=== PATIENT | female | born 1935 | race Caucasian/White ===

== ENCOUNTER → 2016-12-23 | Outpatient (CLI) | payer OTHER | LOC: MMPC 09:00 | DX: N39.0 Urinary tract infection, site not specified (principal); L90.0 Lichen sclerosus et atrophicus; Z85.850 Personal history of malignant neoplasm of thyroid; E66.9 Obesity, unspecified; R73.9 Hyperglycemia, unspecified; H35.30 Unspecified macular degeneration; E03.9 Hypothyroidism, unspecified; K21.9 Gastro-esophageal reflux disease without esophagitis; I10 Essential (primary) hypertension; M10.9 Gout, unspecified; I47.1 Supraventricular tachycardia; Z85.3 Personal history of malignant neoplasm of breast; Z85.118 Personal history of other malignant neoplasm of bronchus and lung | CPT/HCPCS: 99213; G0463 ==

== ENCOUNTER → 2017-01-05 | Outpatient (CLI) | payer OTHER ==
[2017-01-05 16:39] LABS: BILIRUBIN,URINE NEGATIVE (NEG); CLARITY,URINE CLEAR (CLEAR); GLUCOSE, URINE (UA) NEGATIVE (NEG); LEUKOCYTE ESTERASE ,URINE SMALL (NEG); NITRATE,URINE NEGATIVE (NEG); OCCULT BLOOD,URINE NEGATIVE (NEG); PH,URINE 6.5 (5.0-8.5); PROTEIN,URINE NEGATIVE (NEG); UROBILINOGEN,URINE 0.2 EU/dL (0.2)
[2017-01-05 16:51] LABS: URINE SAMPLE TYPE CLEAN CATCH URINE
[2017-01-05 16:52] LABS: SQUAMOUS EPITHELIAL CELL,UR RARE
== END ==
LOC: MOB LAB 15:23
DX: N39.0 Urinary tract infection, site not specified (principal); R82.99 Other abnormal findings in urine
CPT/HCPCS: 81001; 87077; 87088; 87186

== ENCOUNTER → 2017-01-13 | Outpatient (CLI) | payer OTHER ==
[2017-01-13 17:08] LABS: FREE T3 3.14 PG/ML (2.77-5.27); FREE T4 (FREE THYROXINE) 1.74 ng/dL (0.93-1.71)
== END ==
LOC: LAB 15:53
PROVIDERS: ATTEND Radiology Radiation Oncology
DX: E89.0 Postprocedural hypothyroidism (principal); Z85.3 Personal history of malignant neoplasm of breast
CPT/HCPCS: 36415; 84439; 84443; 84481

== ENCOUNTER → 2017-02-09 | Outpatient (CLI) | payer OTHER | LOC: MMPC 11:11 | DX: M54.2 Cervicalgia (principal); L90.0 Lichen sclerosus et atrophicus; Z85.850 Personal history of malignant neoplasm of thyroid; N39.0 Urinary tract infection, site not specified; E03.9 Hypothyroidism, unspecified; K21.9 Gastro-esophageal reflux disease without esophagitis; I10 Essential (primary) hypertension; M10.9 Gout, unspecified; Z85.3 Personal history of malignant neoplasm of breast; Z85.118 Personal history of other malignant neoplasm of bronchus and lung | CPT/HCPCS: 99213; G0463 ==

== ENCOUNTER → 2017-03-02 | Outpatient (CLI) | payer OTHER | LOC: MMPC 11:11 | DX: M54.2 Cervicalgia (principal); I47.1 Supraventricular tachycardia; E55.9 Vitamin D deficiency, unspecified; E66.9 Obesity, unspecified; I10 Essential (primary) hypertension; E03.9 Hypothyroidism, unspecified; L90.0 Lichen sclerosus et atrophicus; N39.0 Urinary tract infection, site not specified; K21.9 Gastro-esophageal reflux disease without esophagitis; M10.9 Gout, unspecified; Z85.3 Personal history of malignant neoplasm of breast; Z86.011 Personal history of benign neoplasm of the brain; Z85.850 Personal history of malignant neoplasm of thyroid; Z85.118 Personal history of other malignant neoplasm of bronchus and lung | CPT/HCPCS: 99213; G0463 ==

== ENCOUNTER → 2017-03-10 | Outpatient (CLI) | payer OTHER ==
--- NOTE | 2017-03-10 12:40 | DI ---
MRI ORB/FACE AND/OR NCK W/O CN,03/10/2017 9:45 AM: Clinical History: Left-sided neck pain. Previous Exam: None at this facility. Findings: Multiplanar MR images are obtained through the neck without contrast. Bony alignment is anatomic and vertebral body height is preserved. Degenerative changes are seen of t he posterior articulating facets. The parotid glands are unremarkable. The temporomandibular joint is normal bilaterally. The submandibular glands are unremarkable. The parapharyngeal fat is normal and symmetric. The pharyngeal mucosal space is unremarkable. The major vascular flow voids are unremarkable. The cerebellopontine angles are normal. Visualized portions of the base of the skull demonstrate some mild diffuse age-related volume loss. Skeletal structures are unremarkable. The carotid arteries and vertebral arteries are grossly normal. There is no significant cervical lymphadenopathy. There is facet hypertrophy of the cervical spine which is worse on the left than the right causing mo derate left neural foraminal narrowing at C3/4, C4/5 and C5/6. These images are not well evaluated du e to the protocol which was used in this exam. The posterior fossa is unremarkable. Visualized portions of the thoracic spine are unremarkable. Impression: Degenerative changes of the cervical spine worst at the C3/4, C4/5 and C5/6 levels on the left. No soft tissue abnormalities.
== END ==
LOC: MRI 09:40
DX: M54.2 Cervicalgia (principal); M50.31 Other cervical disc degeneration, high cervical region; M50.321 Other cervical disc degeneration at C4-C5 level; M50.322 Other cervical disc degeneration at C5-C6 level
CPT/HCPCS: 70540

== ENCOUNTER → 2017-03-24 | Outpatient (CLI) | payer OTHER ==
--- NOTE | 2017-03-24 10:11 | DI ---
MRI BRAIN SCAN WITHOUT CONTRAST, 03/24/2017 8:54 AM: Clinical History: History of meningioma of the brain. Previous Exam: CT head scan from 03/24/2006; MRI brain scans from 08/28/2010 and 12/13/2014. The patien t also had a noncontrast MRI scan of the orbits/face/neck on 03/10/2017. Sequences: Sagittal T1; Axial PRISCILLA T2 and FLAIR. Axial diffusion weighted images with ADC mapping were also performed. The 4th, 3rd, and lateral ventricles are of normal size, shape, position, and contour for this patien t's age. There are no focal areas of abnormally increased or decreased signal intensity. There is foc al atrophic change along the posterior and medial aspect of the right cerebellar hemisphere where robin arently the meningioma was previously located. A suboccipital craniectomy is present in this location and the defect is filled with a metallic mesh. The appearance of the cerebellum and cerebrum are unc hanged from the previous studies. There are a few scattered 2-3 mm hyperintensities in the white carlos er of the left posterior parietal region and in both frontal lobes that have not changed. There is mi ld to moderate cerebellar and moderate cerebral atrophy. Diffusion weighted imaging with ADC mapping is normal. There are no extracerebral mantels or shift of the midline structures. The paranasal sinus es are normal. Readin. Status post right suboccipital craniectomy. There is focal atrophy of the right cerebellar hemisp here posteriorly and medially and this presumably represents the location of the meningioma that has been resected. There is no evidence of recurrence of tumor. 2. There are a few scattered small punctate hyperintensities in both frontal lobes and the left post erior parietal lobe region that have not changed. The exact etiology and significance of these hyperi ntensities is uncertain. 3. Mild to moderate cerebellar and moderate cerebral atrophy. 4. Diffusion weighted imaging with ADC mapping is normal.
== END ==
LOC: MRI 03-11 09:41
DX: Z86.011 Personal history of benign neoplasm of the brain (principal); G31.89 Other specified degenerative diseases of nervous system
CPT/HCPCS: 70551

== ENCOUNTER → 2017-04-06 | Outpatient (CLI) | payer OTHER | LOC: MMPC 11:11 | PROVIDERS: ATTEND Physician Assistant | DX: J32.9 Chronic sinusitis, unspecified (principal) | CPT/HCPCS: 99213; G0463 ==

== ENCOUNTER → 2017-04-20 | Outpatient (CLI) | payer OTHER | LOC: MMPC 11:11 | DX: M54.2 Cervicalgia (principal); L90.0 Lichen sclerosus et atrophicus; E55.9 Vitamin D deficiency, unspecified; E66.9 Obesity, unspecified; N39.0 Urinary tract infection, site not specified; E03.9 Hypothyroidism, unspecified; K21.9 Gastro-esophageal reflux disease without esophagitis; I10 Essential (primary) hypertension; M10.9 Gout, unspecified; I47.1 Supraventricular tachycardia; Z85.3 Personal history of malignant neoplasm of breast; Z85.850 Personal history of malignant neoplasm of thyroid; Z85.118 Personal history of other malignant neoplasm of bronchus and lung | CPT/HCPCS: 99213; G0463 ==

== ENCOUNTER 2017-05-22 22:25 | Emergency (ER) | payer OTHER ==
[2017-05-22 22:44] LABS: BASOPHILS # (AUTO) 0.06 10*3/UL; BASOPHILS % (AUTO) 1.1 % (0-1); EOSINOPHILS # (AUTO) 0.18 10*3/UL; EOSINOPHILS % (AUTO) 3.2 % (0-8); HEMATOCRIT 39.4 % (37.0-47.0); HEMOGLOBIN 12.9 g/dL (12.0-16.0); LYMPHOCYTES # (AUTO) 1.56 10*3/uL; MEAN CORPUSCULAR HEMOGLOBIN 32.9 PG (27-31); MEAN CORPUSCULAR HGB CONC 32.7 g/dL (33-37); MEAN CORPUSCULAR VOLUME 100.5 FL (81-99); MEAN PLATELET VOLUME 10.2 FL (7.4-12.2); MONOCYTES # (AUTO) 0.54 10*3/UL (0.3-0.8); MONOCYTES % (AUTO) 9.7 % (5-15); NEUTROPHILS # (AUTO) 3.23 10*3/UL; NEUTROPHILS % (AUTO) 58 % (50-80); PLATELET MORPHOLOGY COMMENT NORMAL MORPHOLOGY (NORM); RBC MORPHOLOGY COMMENT NORMAL MORPHOLOGY (NORM); RED BLOOD COUNT 3.92 10^6/uL (4.20-5.40); WBC MORPHOLOGY COMMENT NORMAL MORPHOLOGY (NORM)
--- NOTE | 2017-05-22 22:46 | PDOC ---
Gen Adult / Medical Screen HPI - General Chief Complaint: General Medical Stated Complaint: LEFT JAW PAIN, STIFF NECK Date Seen by Provider: 05/22/17 Time Seen by Provider: 22:41 Source: POSITIVE: Patient, Spouse Exam Limitations: POSITIVE: No limitations Nurse's Notes Reviewed & Considered: Yes - Indicators Temperature Between 95 and 101 Degrees: Yes Respirations Between 12 and 20: Yes Blood Pressure Between 100-165 (sys) and 60-100 (mccarty): Yes Pulse Range Between 60-105 (100 for age > 60 years): Yes Severe Pain (Greater than 5/10 Reported): No Chest or Abdominal Pain: No Inability to Walk: No Pt Reports Active High Risk Cond. (TB/Hepatitis/HIV/Chemo): No Abnormal Mental Status: No - History of Present Illness Initial Comments: This is an 82-year-old female who comes in today complaining of left jaw pain with swelling. Patient has had many months of left jaw pain with intermittent swelling. She's had multiple workup by her primary care physician and has been unable to find an answer to her problem, although intermittent sialoadenitis seems to be responsible. She denies headache, sore throat, no trouble swallowing, no chest pain, no shortness of breath, no nausea vomiting or diarrhea, no hematuria dysuria, no rashes, no fever chills or sweats. Body Location Affected: REPORTS: Face (Left jaw), Neck Timing: REPORTS: Intermittent Duration: Unknown Similar Symptoms Previously: Yes Recent Care Received: REPORTS: Denies Any Prior Injuries Related to Current Complaint?: No - Patient Home Medications Home Medications: Home Medications Cholecalciferol (Vitamin D3) [Vitamin D3] 1 tab PO QD #30 tab 03/19/15 Gabapentin [Neurontin] 300 mg PO TID #15 cap 01/16/16 Nitrofurantoin Macrocrystal [Macrodantin] 1 cap PO QD #30 cap 06/29/16 Tamsulosin HCl [Flomax] 1 cap PO QD #30 cap 08/06/16 Clobetasol Propionate/Emoll [Clobetasol Emollient 0.05% Crm] 1 applic TOPICAL BID PRN #2 tube 09/23/16 Levothyroxine Sodium [Synthroid] 1 tab PO QD #30 tab NS 10/19/16 Allopurinol 1 tab PO QD #90 tab 11/24/16 Sulfamethoxazole/Trimethoprim [Bactrim Ds Tablet] 1 tab PO BID #14 tab 01/08/17 Tramadol HCl 1 tab PO QD PRN #30 tab 01/25/17 Triamterene/Hydrochlorothiazid [Triamterene-Hctz 37.5-25 Mg Cp] 1 cap PO QD #90 cap 01/26/17 Omeprazole 1 cap PO QD #90 cap 03/09/17 Metoprolol Tartrate 1 tab PO BID #180 tab 04/05/17 Albuterol Sulfate [Proair Hfa] 1 - 2 puff INH Q4-6H #1 inhaler 04/06/17 - Patient Allergies Allergies/Adverse Reactions: Allergies Allergy/AdvReac Type Severity Reaction Status Date / Time TANNER Inhibitors Allergy Severe Anaphylaxis Verified 05/22/17 22:51 [Tanner Inhibitors] cephalexin monohydrate Allergy Severe NOT Verified 05/22/17 22:51 [From Keflex] APPLICABLE ciprofloxacin [Ciprofloxacin] Allergy Severe NOT Verified 05/22/17 22:51 APPLICABLE indomethacin Allergy Severe Anaphylaxis Verified 05/22/17 22:51 levofloxacin [From Levaquin] Allergy Severe TENDON Verified 05/22/17 22:51 DAMAGE lisinopril Allergy Severe Anaphylaxis Verified 05/22/17 22:51 Penicillins Allergy Severe RASH Verified 05/22/17 22:51 morphine AdvReac Severe VOMITING Verified 05/22/17 22:51 Past Medical History - heen HEENT History: Denies History Cardiovascular History: Hypertension Respiratory History: Home Oxygen Use, Other (please comment) Additional Respiratory History: LOBECTOMY FROM CANCER-- R MIDDLE AND R LOWERO2 USE AT NIGHT Gastrointestinal History: Denies History Additional Gastrointestinal History: COLON RESECTION FOR DIVERTICULITIS Genitourinary History: Recurrent UTI, Other (please comment) Additional Genitourinary History: BLADDER SUSPENSION WITH MESH Endocrine History: Hypothyroidism, Other (please comment) Additional Endocrine History: THYROID CA WITH THYROIDECTOMY Musculoskeletal History: Gout, Other (please comment) Prosthesis or Implant: No Additional Musculoskeletal History: BILAT TOTAL KNEE REPLACEMENT Neurological History: Denies History Additional Neurological History: 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 Blood Disorders: Denies History Psychiatric History: Denies History History of Sexually Transmitted Diseases: No Cancer History: Lung, Breast History of MDRO: Yes History of Other Communicable Diseases: No Alcohol Use: None Substance Use Type: None Previous Surgical History: Yes Type / Date of Surgery: MULTIPLE Anesthesia Reactions: No Malignant Hyperthermia: No Significant Family History: No pertinent family hx ROS - Limitations ROS Limitations: No Limitations Constitution: REPORTS: Denies Symptoms Cardiovascular: REPORTS: Denies Cardiac Symptoms Respiratory: REPORTS: Denies Resp Symptoms Neurological: REPORTS: Denies Neuro Symptoms Gastrointestinal: REPORTS: Denies GI Symptoms Endocrine: REPORTS: Denies Symptoms Musculoskeletal: REPORTS: Neck Pain, Other (Jaw pain with swelling of the left jaw.) Genitourinary: REPORTS: Denies Symptoms Eyes: REPORTS: Denies Symptoms ENT: REPORTS: Denies Symptoms Skin: REPORTS: Denies Skin Symptoms Lympathic: REPORTS: Swollen Glands (Complaining of glans swollen left jaw and neck.) Immunologic: POSITIVE: Denies Symptoms Psychiatric: POSITIVE: Denies Psych Symptoms Gen Adult/Medical Screen Exam - General Appearance General Appearance: POSITIVE: Alert, Cooperative, No Acute Distress, No Evidence of Trauma - HEENT HEENT: POSITIVE: Head Inspection Nml, Eyes Inspection Nml, Ears Inspection Nml, Nose Inspection Nml, Oral/Dental Inspect. Nml, Pharynx Inspect. Nml, PERRL, EOMI , Other (Swollen and tender left parotid gland and sublingual gland.) - Pupils Pupil Size: 4 mm: Bilateral - Neck Neck: POSITIVE: Lymphadenopathy (Swollen lymph glands of the as well as swelling over the left jaw at the level of the parotid gland and the sublingual salivary gland.) - Respiratory Respiratory: POSITIVE: No Respiratory Distress, Breath Sounds Normal, Chest Non- Tender - Cardiovascular Cardiovascular: POSITIVE: Regular Rate & Rhythm, No Murmur, No Gallop, PMI Normal - Abdomen Abdomen: Soft: (All Quadrants), Normal Bowel Sounds: (All Quadrants), Denies Tenderness: (All Quadrants), No Splenomegaly: (All Quadrants), No Hepatomegaly: (All Quadrants), No Guarding: (All Quadrants), No Rebound: (All Quadrants), No Palpable Pulse: (All Quadrants), No Palpabale Mass: (All Quadrants), No Distention: (All Quadrants), No Rigidity: (All Quadrants) - Back Back: POSITIVE: Normal Inspection - Neurological / Psychological Mental Status: POSITIVE: Mood Normal, Affect Normal Orientation: POSITIVE: Oriented x 3 - Skin Skin: POSITIVE: Normal Color, Warm, Dry, No Rash - Extremities Extremity: Non-Tender: (All Extremities), Normal ROM: (All Extremities), Normal Inspection: (All Extremities), Pelvis Stable: (All Extremities) Procedures - Laceration/Wound Repair Did patient have a laceration repair: No Gen Adlt/Medical Scrn Progress - Results Reviewed by me Xrays/CTs/US Reviewed by me: Yes Discussed with Radiologist: Yes Lab Results Reviewed: Yes Lab Results:: Laboratory Results 05/22/17 Range/Units 22:30 WBC 5.57 (4.8-10.8) 10^3/uL RBC 3.92 L (4.20-5.40) 10^6/uL Hgb 12.9 (12.0-16.0) g/dL Hct 39.4 (37.0-47.0) % MCV 100.5 H (81-99) FL MCH 32.9 H (27-31) PG MCHC 32.7 L (33-37) g/dL RDW Std Deviation 51.5 H (39-50) fL RDW Coeff of Rick 14.3 (11.5-14.5) % Plt Count 157 (140-350) 10*3/uL MPV 10.2 (7.4-12.2) FL Immature Gran % (Auto) 0 (0-5) % Neut % (Auto) 58 (50-80) % Lymph % (Auto) 28 (10-50) % Hidalgo % (Auto) 9.7 (5-15) % Eos % (Auto) 3.2 (0-8) % Baso % (Auto) 1.1 H (0-1) % Immature Gran # (Auto) 0 10*3/UL Neut # (Auto) 3.23 10*3/UL Lymph # (Auto) 1.56 10*3/uL Hidalgo # (Auto) 0.54 (0.3-0.8) 10*3/UL Eos # (Auto) 0.18 10*3/UL Baso # (Auto) 0.06 10*3/UL WBC Morphology Comment Normal morphology (NORM) Plt Morphology Comment Normal morphology (NORM) RBC Morph Comment Normal morphology (NORM) Sodium 140 (135-145) meq/L Potassium 3.8 (3.8-5.2) meq/L Chloride 103 (98-112) meq/L Carbon Dioxide 29 (23-33) meq/L Anion Gap 8 (5-20) BUN 21 (7-22) mg/dL Creatinine 0.9 (0.50-1.20) mg/dL Estimated GFR (>60 ml/min/1.73m(2)) BUN/Creatinine Ratio 23.33 H (6-20) Glucose 118 H (78-110) mg/dL Calculated Osmolality 293.0 H (267-292) mOsm/kg Calcium 9.3 (8.7-10.7) mg/dL Total Bilirubin 0.5 (0.3-1.2) mg/dL AST 23 (8-39) IU/L ALT 30 (9-52) IU/L Alkaline Phosphatase 86 (38-126) IU/L C-Reactive Protein 3.2 H (0.0-0.9) mg/dL Total Protein 6.8 (6.1-8.0) g/dL Albumin 3.7 (3.5-4.8) g/dL Globulin 3.1 (2.50-4.10) g/dL Albumin/Globulin Ratio 1.10 L (1.3-2.0) mg/g Amylase 1037 H (30-110) U/L - Patient's Progress Pain Medication Addressed: POSITIVE: Yes Re-Examine Time: 01:07 Status: POSITIVE: Improved MDM / ED Course: Patient was examined, an IV started, blood drawn and sent to the lab for studies , radiographic examinations were obtained. She received a liter of normal saline, Toradol, and Zofran. Findings: Amylase is elevated 1037. CBC shows slight elevation of her white count. Comprehensive metabolic panel is unremarkable. Ultrasound of her parotid gland shows enlargement of the gland and enlarged lymph nodes in that area per my interpretation. CT scan of her neck shows enlarged parotid gland with no masses present. Assessment: Sialadenitis Plan: Discharge home, lumens limb and drops, follow-up with primary care physician. - Consult Counseled: POSITIVE: Patient, Family, RE: Lab Results, RE: Radiology Results, RE : DX, RE: Need for F/U Patient Care Time - Estimated PCT Patient Care Time (In Minutes): 45 Vital Signs - Recent Vital Signs Vital Signs: Vital Signs (Last 8 hours) Temp Pulse Resp BP Pulse Ox 05/22/17 22:25 97.9 F 85 20 155/70 92 - VS Reviewed Vital Signs Reviewed: Yes Discharge Clinical Impression: Sialoadenitis Discharge Disposition: Discharged to Home Condition: Stable Patient Instructions Given at Discharge: Sialcynthiaenitis (ED)
[2017-05-22 22:55] LABS: BUN/CREATININE RATIO 23.33 (6-20); C-REACTIVE PROTEIN 3.2 mg/dL (0.0-0.9); CALCIUM 9.3 mg/dL (8.7-10.7); SERUM ALBUMIN 3.7 g/dL (3.5-4.8)
[2017-05-22] MEDS: Sodium Chloride 0.9% 1,000 ML PRIMARY IV ONE (23:01)
[2017-05-22] MEDS: KETOROLAC 15 MG/1 ML VIAL IVP ONE (23:04)
[2017-05-22 23:50] VITALS: RESP 20; TEMP 97.9
--- NOTE | 2017-05-23 00:01 | DI ---
HISTORY: Left jaw pain. COMPARISON: None available. TECHNIQUE: Multiple grayscale and color Doppler images of the left neck were obtained during a real time examination. FINDINGS: Imaged portions of the left parotid and submandibular glands demonstrate normal sonographi c morphology without discrete mass or hypervascularity. Several prominent lymph nodes are noted, not pathologically enlarged by CT size criteria. Consider advanced contrast-enhanced cross-sectional im aging if there is continued clinical concern. IMPRESSION: 1. Normal sonographic morphology without discrete mass or hypervascularity. 2. Several prominent lymph nodes are noted, not pathologically enlarged by CT size criteria. Conside r advanced contrast-enhanced cross-sectional imaging if there is continued clinical concern. NOTE: The interpreting Radiologist was not present at the time of ultrasound interrogation.
--- NOTE | 2017-05-23 00:52 | DI ---
HISTORY: Left side upper neck swelling. TECHNIQUE: Contiguous axial images of the neck tissues were obtained and submitted for interpretatio n. FINDINGS: There is thickening and enhancement of the left parotid gland relative to the right with mi ld surrounding fat stranding. There is no discrete solid or cystic mass. The submandibular and thyroid glands exhibit normal CT morphology. Mucosal surfaces are smooth and symmetric. There is no formed fluid collection to suggest abscess for mation. No cervical lymphadenopathy. Paranasal sinuses and mastoid air cells are clear. There are postsurgical changes of the posterior fossa with encephalomalacia of the right posterior re medial cerebellar hemisphere. There are postsurgical changes of the bilateral globes. Imaged portions of the facial soft tissues ar e unremarkable. There is left lung apex pleural-parenchymal scarring. Vascular structures are intact. Osseous structures are notable for degenerative changes of the spine without acute osseous abnormalit y. IMPRESSION: 1. There is thickening and enhancement of the left parotid gland relative to the right with mild surr ounding fat stranding. Though nonspecific, this can be seen in the setting of infectious and inflamma tory etiologies. Clinical and laboratory correlation is recommended with follow-up to resolution.
== END 2017-05-23 01:28 | disposition home or self-care (01) ==
LOC: ER 22:25
DX: K11.21 Acute sialoadenitis (principal); M54.2 Cervicalgia; R22.0 Localized swelling, mass and lump, head; I10 Essential (primary) hypertension; R68.84 Jaw pain; Z85.3 Personal history of malignant neoplasm of breast; Z85.118 Personal history of other malignant neoplasm of bronchus and lung
CPT/HCPCS: 70491; 76536; 80053; 82150; 85025; 86140; 96374; 99283 ×2; J1885; J7030

== ENCOUNTER → 2017-05-25 | Outpatient (CLI) | payer OTHER ==
[2017-05-25 11:36] LABS: FREE T4 (FREE THYROXINE) 1.63 ng/dL (0.93-1.71)
== END ==
LOC: LAB 10:43
PROVIDERS: ATTEND Radiology Radiation Oncology
DX: Z85.3 Personal history of malignant neoplasm of breast (principal)
CPT/HCPCS: 36415; 84439; 84443

== ENCOUNTER 2018-12-02 13:12 | Inpatient (IN) ==
[2018-12-02] MEDS ORDERED: Sodium Chloride 0.9% 1,000 ML PRIMARY IV ONE (13:55)
[2018-12-02 14:16] LABS: VENOUS PH 7.37 (7.32-7.42)
[2018-12-02 14:20] LABS: BASOPHILS # (AUTO) 0.04 10*3/UL; BASOPHILS % (AUTO) 0.7 % (0-1); EOSINOPHILS # (AUTO) 0.23 10*3/UL; EOSINOPHILS % (AUTO) 3.9 % (0-8); Hematocrit [HCT] 40.9 % (37.0-47.0); Hemoglobin [HGB] 13.1 g/dL (12.0-16.0); LYMPHOCYTES # (AUTO) 1.39 10*3/uL; MEAN CORPUSCULAR HEMOGLOBIN 32.3 PG (27-31); MEAN PLATELET VOLUME 10.4 FL (7.4-12.2); MONOCYTES % (AUTO) 8.6 % (5-15); NEUTROPHILS # (AUTO) 3.66 10*3/UL; NEUTROPHILS % (AUTO) 62.8 % (50-80); RED BLOOD COUNT 4.05 10^6/uL (4.20-5.40)
[2018-12-02 14:21] LABS: PLATELET MORPHOLOGY COMMENT NORMAL MORPHOLOGY (NORM); RBC MORPHOLOGY COMMENT NORMAL MORPHOLOGY (NORM); WBC MORPHOLOGY COMMENT NORMAL MORPHOLOGY (NORM)
[2018-12-02 14:31] LABS: BLOOD UREA NITROGEN 17 mg/dL (7-22); BUN/CREATININE RATIO 21.25 (6-20); SERUM ALBUMIN 3.9 g/dL (3.5-4.8)
[2018-12-02 14:50] LABS: BILIRUBIN,URINE NEGATIVE (NEG); CLARITY,URINE CLEAR (CLEAR); COLOR,URINE YELLOW (Y); GLUCOSE, URINE (UA) NEGATIVE (NEG); OCCULT BLOOD,URINE NEGATIVE (NEG); PROTEIN,URINE NEGATIVE (NEG); URINE SAMPLE TYPE CLEAN CATCH URINE
--- NOTE | 2018-12-02 14:56 | DI ---
PA /LATERAL CHEST, 12/02/2018 1:55 PM : Clinical History: Dyspnea. Previous Exam: 05/13/2016. Soft Tissues: No acute soft tissue abnormality. Bones: Normal. Osteoporosis. Heart: Cardiomegaly without CHF. Lungs: No infiltrates. The right diaphragm remains chronically elevated. Effusion(s): None. Mediastinum: Normal mediastinum. Nodules: No pulmonary nodules. Readin. No acute infiltrate or effusion. 2. Cardiomegaly without CHF. 3. Osteoporosis.
[2018-12-02 14:57] LABS: SQUAMOUS EPITHELIAL CELL,UR RARE; URINE CRYSTALS FEW
[2018-12-02 14:58] LABS: URINE CASTS FEW
[2018-12-02] MEDS ORDERED: IPRATROPIUM/ALBUTEROL SULFATE 3 ML NEB NEB ONE (15:08)
--- NOTE | 2018-12-02 16:27 | DI ---
CT ANGIOGRAM OF THE CHEST, 12/02/2018 3:07 PM : Clinical History: Dyspnea. Elevated D-dimer test. Previous Exam: None at this facility. Technique: Scans from base of neck to lung bases with IV contrast. Bolus tracking protocol was used f or timing the injection. Non-MIPS and MIPS sagittal/coronal images generated. IV Contrast: 57 mL of Isovue 300. Base of Neck: Normal. Chest Wall: Status post left mastectomy. Nodes: Normal axillary, supraclavicular, mediastinal, and hilar lymph nodes. Heart: Normal. No coronary artery calcifications. Aorta: Normal thoracic aorta. No aneurysm or dissection. Pulmonary Arteries: Pulmonary emboli are present in branches to the right upper lobe. The patient is status post right middle and right lower lobectomy. There is pulmonary tear of hypertension. Lungs: Status post right middle and right lower lobectomy with elevation of the right diaphragm and c ompensatory hyperinflation of the right upper lobe. No acute infiltrates are present. Effusion(s): None. Nodules: None. Bony Structures: Normal visualized portions of ribs, sternum, scapulae, clavicles, and shoulders. Nor mal visualized portions of thoracic spine. No blastic or lytic bony lesions noted. Limited Upper Abdomen: Hepatosplenomegaly. Normal adrenal glands and limited views of the pancreas. READIN. Status post right middle and lower lobectomy and status post left mastectomy without evidence of blastic or lytic or pulmonary metastases. 2. Pulmonary emboli are visualized in the right upper lobe which is the remaining lobe in the right thorax. There is pulmonary arterial hypertension. 3. Hepatosplenomegaly.
--- NOTE | 2018-12-02 17:46 | PDOC ---
HPI - History of Present Illness History of Present Illness: This very nice 83-year-old female with multiple medical issues was at the [facility] today for what she thought upper respiratory symptoms she was found to be hypox ic and was sent over to the emergency room via ambulance. In the emergency room CT scan was done which showed the right upper lobe pulmonary embolus she has negative troponin negative LFTs she is comfortable now not short of breath on oxygen she doesn't appear to have some lower extremity edema which is chronic she states Past Medical History Medical History: 1. Non-small cell carcinoma the lung status post right middle and lower lobe lobectomy in 2007. 2. Infiltrating ductal carcinoma of the breast. 3. Follicular thyroid carcinoma status post resection and radioactive iodine ablation. 4. Hypertension. 5. Postsurgical hypothyroidism. 6. Gouty arthropathy. 7. BP V. 8. GERD. 9. Postoperative DVT in 1981. 10. History of SVT. 11. Lichen sclerosis. 12. Vitamin D deficiency. 13. Osteoporosis Surgical History: 1. Hysterectomy with right oophorectomy. 2. Left inguinal hernia repair. 3. Multiple knee surgeries. 4. Posterior fossa meningioma status post surgical resection. 5. Cholecystectomy. 6. Partial colectomy with left oophorectomy. 7. Appendectomy with right ovarian cyst removal. 8. Tonsillectomy Pertinent Family History: Mother of old age at 101 and father at 76 from diabetes Past Social History: Does not smoke or drink. . Has children. Tobacco Use: Never Smoker In the Past 12 Months, Have Used or Abuse Any of the Following Substance: None Medication / Allergies Home Medications: Home Medications Medication Instructions Recorded Confirmed Type Albuterol Sulfate [Proair Hfa] 1 - 2 puff INH Q4-6H #1 inhaler 04/06/17 12/02/18 Rx metoprolol tartrate 50 mg tablet 50 mg PO BID #180 tab 06/30/17 12/02/18 Clinic omeprazole 40 mg capsule,delayed 40 mg PO QDAY #90 cap 06/30/17 12/02/18 Clinic release tramadol 50 mg tablet 50 mg PO QDAY PRN #60 tab 10/05/17 12/02/18 Rx linaclotide 72 mcg capsule 72 mcg PO QDAY 05/02/18 12/02/18 History triamterene 37.5 1 tab PO QDAY #90 tab 06/06/18 12/02/18 Rx mg-hydrochlorothiazide 25 mg tablet allopurinol 300 mg tablet 300 mg PO QDAY #1 tab 09/08/18 12/02/18 Clinic sertraline 25 mg tablet 25 mg PO QDAY #90 tab 09/08/18 12/02/18 Rx levothyroxine 125 mcg tablet 125 mcg PO QDAY tab 09/30/18 12/02/18 History Allergies/Adverse Reactions: Allergies Allergy/AdvReac Type Severity Reaction Status Date / Time TANNER Inhibitors Allergy Severe Anaphylaxis Verified 12/02/18 13:30 [Tanner Inhibitors] cephalexin monohydrate Allergy Severe NOT Verified 12/02/18 13:30 [From Keflex] APPLICABLE ciprofloxacin [Ciprofloxacin] Allergy Severe NOT Verified 12/02/18 13:30 APPLICABLE indomethacin Allergy Severe Anaphylaxis Verified 12/02/18 13:30 levofloxacin [From Levaquin] Allergy Severe TENDON Verified 12/02/18 13:30 DAMAGE lisinopril Allergy Severe Anaphylaxis Verified 12/02/18 13:30 Penicillins Allergy Severe RASH Verified 12/02/18 13:30 morphine AdvReac Severe VOMITING Verified 12/02/18 13:30 Review of Systems - Respiratory Respiratory: DENIES: Negative System Review, Cough, Sputum, Dyspnea At Rest, Dyspnea with Exertion, Pleuritic Pain, Hemoptysis, Wheezing, Other, See HPI - Cardiovascular Cardiovascular: DENIES: Negative System Review, Chest Pain, Edema, Syncope, Palpitations, Orthopnea, Paroxysmal Nocturnal Dyspnea, Other, See HPI - Gastrointestinal Gastrointestinal / Abdominal: DENIES: Negative System Review, Nausea, Vomiting, Diarrhea, Constipation, Abdominal Pain, Bloody Stool, Poor Appetite, Heartburn, Regurgitation, Bloating, Lactose Intolerance, Melena, Bright Red Blood per Rectum, Other, See HPI Exam - Vitals Vital Signs: Vital Signs Temperature 97.8 F Temperature Source Temporal Artery Scan Pulse Rate [Telemetry] 53 Pulse Rate 52 Respiratory Rate 22 Blood Pressure [Right Radial 140/86 Artery] Pulse Ox 96 Oxygen Delivery Method Nasal Cannula Height 5 ft 4 in Weight 260 lb - General General Appearance: No Acute Distress, Cooperative - Respiratory Respiratory Exam: POSITIVE: Clear to Auscultation - Bilaterally, Breathing Non Labored, Normal To Percussion, Normal to Percussion and Palpation, Decreased Breath Sounds - Cardiovascular Cardiovascular Exam: POSITIVE: RRR, No Murmur, No Clicks, No Gallops, No Rubs, PMI Non-Displaced - GI/Abdominal GI/Abdominal Exam: POSITIVE: Normal Bowel Sounds, Non Tender, Non Distended, Soft, No Masses, No Hepatomegaly, No Splenomegaly, No Organomegaly - Extremities Extremities Exam: POSITIVE: No Clubbing Present, No Cyanosis Present, +2 Edema - Neurological Neurological Exam: POSITIVE: Alert, Oriented x 3, No Facial Droop, Speech Intact / Clear Results - Labs CBC and BMP: 12/02/18 14:19 12/02/18 14:19 Assessment and Plan - Patient Problems (1) Pulmonary embolism Current Visit: Yes Status: Acute Comment: Negative troponin negative LFTs no signs of right heart strain at present time I did order a 2-D echo I don't know when this will be done here she might have to do it as an outpatient as we have no echo capability at this point in time. She will be started on the anticoagulation L eliquis 10 mg twice a day for 7 days I will also insert De Leon catheter she has incontinence because of her lower sternum and the edema I will try some Lasix 40 twice a day. She really would like to be discharged home tomorrow afternoon I told her that sometimes complications of pulmonary embolus manifest within 24-48 hours in the form of arrhythmias we will be monitoring her. She uses oxygen at home but usually only at night Code(s): I26.99 - Other pulmonary embolism without acute cor pulmonale
[2018-12-02] MEDS ORDERED: Sodium Chloride 0.9% 1,000 ML PRIMARY IV SCH (18:09)
[2018-12-02] MEDS ORDERED: ACETAMINOPHEN 325 MG TABLET PO PRN (18:09)
[2018-12-02] MEDS ORDERED: ONDANSETRON 4 MG/2 ML VIAL IVP PRN (18:09)
[2018-12-02] MEDS ORDERED: LIDOCAINE W/ SODIUM BICARB 0.5 ML SYR SUBD PRN (18:09)
[2018-12-02] MEDS ORDERED: CALCIUM CARBONATE 500 MG (TUMS) CHEWABLE TABLET PO PRN (18:09)
[2018-12-02] MEDS ORDERED: DOCUSATE 100 MG CAPSULE PO PRN (18:09)
[2018-12-02] MEDS ORDERED: FUROSEMIDE 10 MG/1 ML - 4 ML IVP ONE (19:32)
[2018-12-02] MEDS ORDERED: LIDOCAINE HCL 2 % 10 ML JELLY URO-JECT TOPICAL PRN (19:33)
[2018-12-02] MEDS: Metoprolol TARTRATE Tab 50 MG TAB PO SCH (20:06)
[2018-12-02] MEDS: Apixaban 5 MG TABLET PO SCH (20:07)
[2018-12-02] MEDS ORDERED: Apixaban 5 MG TABLET PO SCH (21:00)
[2018-12-02] MEDS: traMADol 50 MG TABLET PO PRN (21:29)
[2018-12-03 05:08] LABS: BASOPHILS # (AUTO) 0.03 10*3/UL; BASOPHILS % (AUTO) 0.6 % (0-1); EOSINOPHILS # (AUTO) 0.19 10*3/UL; EOSINOPHILS % (AUTO) 3.9 % (0-8); Hematocrit [HCT] 39.3 % (37.0-47.0); Hemoglobin [HGB] 12.6 g/dL (12.0-16.0); LYMPHOCYTES # (AUTO) 0.96 10*3/uL; MEAN CORPUSCULAR HEMOGLOBIN 32.4 PG (27-31); MEAN CORPUSCULAR HGB CONC 32.1 g/dL (33-37); MEAN PLATELET VOLUME 9.8 FL (7.4-12.2); MONOCYTES # (AUTO) 0.52 10*3/UL (0.3-0.8); MONOCYTES % (AUTO) 10.6 % (5-15); NEUTROPHILS # (AUTO) 3.19 10*3/UL; NEUTROPHILS % (AUTO) 65.3 % (50-80); RED BLOOD COUNT 3.89 10^6/uL (4.20-5.40)
[2018-12-03 05:25] LABS: PLATELET MORPHOLOGY COMMENT NORMAL MORPHOLOGY (NORM); RBC MORPHOLOGY COMMENT NORMAL MORPHOLOGY (NORM); WBC MORPHOLOGY COMMENT NORMAL MORPHOLOGY (NORM)
[2018-12-03 05:45] LABS: BLOOD UREA NITROGEN 20 mg/dL (7-22); SERUM ALBUMIN 3.5 g/dL (3.5-4.8)
[2018-12-03] MEDS ORDERED: FUROSEMIDE 10 MG/1 ML - 2 ML VIAL IVP SCH (07:00)
[2018-12-03] MEDS: OMEPRAZOLE 40 MG CAPSULE PO SCH (07:55)
[2018-12-03] MEDS: LEVOTHYROXINE 125 MCG TABLET PO SCH (07:55)
--- NOTE | 2018-12-03 09:04 | PDOC ---
General Adult HPI - General Chief Complaint: Dyspnea Stated Complaint: COUGH, SHORT OF BREATH Date Seen by Provider: 12/02/18 Time Seen by Provider: 13:35 Source: POSITIVE: Patient, Spouse, Other (daughter) Exam Limitations: POSITIVE: No limitations Nurse's Notes Reviewed & Considered: Yes EMS Report Reviewed & Considered: Verbal - History of Present Illness Initial Comment: The patient is an 83-year-old female who is brought to the emergency room by ambulance. Patient presented to the walk-in clinic complaining of shortness of breath cough and wheezing. Patient received an albuterol treatment by nebulization at the clinic and she states this alleviated some of her dyspnea and wheezing. She states that for the past 24 hours, approximately, she has had pleuritic chest pain on the right. She does not smoke. She has a history of having had breast cancer, lung cancer and thyroid cancer. She underwent a partial thyroidectomy and a left mastectomy. She also had resection of her right middle lobe and lower lobe. Oxygen saturation on room air on arrival is about 87%. He increases to 94% on 3 L of oxygen by nasal cannula. Patient states that she is on supplemental oxygen at night, 2 L/m. Have you received a tetanus shot in the past 10 years?: No Body Location Affected: REPORTS: Chest (Dyspnea, wheezing and pleuritic chest pain) Timing: REPORTS: Abrupt Duration: <24 hours Severity: Moderate Quality: REPORTS: "Pain" (Some chest discomfort with inspiration) Context: REPORTS: None, Coughing Modifying Factors: improves with: Breathing (Exacerbated by deep inspiration) Similar Symptoms Previously: No Recent Care Received: REPORTS: Recently Seen, Treated by MD (Patient initially seen at the walk-in clinic as above) Any Prior Injuries Related to Current Complaint?: No - Patient Home Medications Home Medications: Home Medications Albuterol Sulfate [Proair Hfa] 1 - 2 puff INH Q4-6H #1 inhaler 04/06/17 metoprolol tartrate 50 mg tablet 50 mg PO BID #180 tab 06/30/17 omeprazole 40 mg capsule,delayed release 40 mg PO QDAY #90 cap 06/30/17 tramadol 50 mg tablet 50 mg PO QDAY PRN #60 tab 10/05/17 linaclotide 72 mcg capsule 72 mcg PO QDAY 05/02/18 triamterene 37.5 mg-hydrochlorothiazide 25 mg tablet 1 tab PO QDAY #90 tab 06/06/18 allopurinol 300 mg tablet 300 mg PO QDAY #1 tab 09/08/18 sertraline 25 mg tablet 25 mg PO QDAY #90 tab 09/08/18 levothyroxine 125 mcg tablet 125 mcg PO QDAY tab 09/30/18 - Patient Allergies Allergies/Adverse Reactions: Allergies Allergy/AdvReac Type Severity Reaction Status Date / Time TANNER Inhibitors Allergy Severe Anaphylaxis Verified 12/02/18 13:30 [Tanner Inhibitors] cephalexin monohydrate Allergy Severe NOT Verified 12/02/18 13:30 [From Keflex] APPLICABLE ciprofloxacin [Ciprofloxacin] Allergy Severe NOT Verified 12/02/18 13:30 APPLICABLE indomethacin Allergy Severe Anaphylaxis Verified 12/02/18 13:30 levofloxacin [From Levaquin] Allergy Severe TENDON Verified 12/02/18 13:30 DAMAGE lisinopril Allergy Severe Anaphylaxis Verified 12/02/18 13:30 Penicillins Allergy Severe RASH Verified 12/02/18 13:30 morphine AdvReac Severe VOMITING Verified 12/02/18 13:30 Past Medical History - heen HEENT History: Macular Degeneration, Dentures/Partials Additional HEENT History: Full set of upper dentures Cardiovascular History: Hypertension Respiratory History: Home Oxygen Use, Other (please comment) Additional Respiratory History: LOBECTOMY FROM CANCER-- R MIDDLE AND R LOWERO2 USE AT NIGHT Gastrointestinal History: Other (please comment) Additional Gastrointestinal History: COLON RESECTION FOR DIVERTICULITIS Genitourinary History: Other (please comment), Recurrent UTI Additional Genitourinary History: BLADDER SUSPENSION WITH MESH Endocrine History: Hypothyroidism, Other (please comment) Additional Endocrine History: THYROID CA WITH THYROIDECTOMY Musculoskeletal History: Gout, Other (please comment) Prosthesis or Implant: No Additional Musculoskeletal History: BILAT TOTAL KNEE REPLACEMENT Neurological History: Other (please comment) Additional Neurological History: 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 History of Other Communicable Diseases: No Tobacco Use: Never Smoker Alcohol Use: None In the Past 12 Months, Have Used or Abuse Any Substance: None Previous Surgical History: Yes Type / Date of Surgery: MULTIPLE Anesthesia Reactions: No Malignant Hyperthermia: No Significant Family History: No pertinent family hx Past Medical History Reviewed: Reviewed - No Changes ROS - Limitations ROS Limitations: No Limitations Constitution: REPORTS: Denies Symptoms Cardiovascular: REPORTS: Denies Cardiac Symptoms Respiratory: REPORTS: Cough Non Productive, Hurts To Breathe, Shortness Of Breath Neurological: REPORTS: Denies Neuro Symptoms Gastrointestinal: REPORTS: Denies GI Symptoms Endocrine: REPORTS: Denies Symptoms Musculoskeletal: REPORTS: Denies MS Symptoms Genitourinary: REPORTS: Denies Symptoms Eyes: REPORTS: Denies Symptoms ENT: REPORTS: Denies Symptoms Skin: REPORTS: Denies Skin Symptoms Lympathic: REPORTS: Denies Lympathic Symptoms Immunologic: POSITIVE: Denies Symptoms Psychiatric: POSITIVE: Denies Psych Symptoms General Adult Exam - General Appearance General Appearance: POSITIVE: Alert, Cooperative, No Acute Distress, No Evidence of Trauma - HEENT HEENT: POSITIVE: Head Inspection Nml, Eyes Inspection Nml, Ears Inspection Nml, Nose Inspection Nml, Oral/Dental Inspect. Nml, Pharynx Inspect. Nml, PERRL, EOMI - Pupils Pupil Size: 3 mm: Bilateral (PERRLA) - Neck Neck: POSITIVE: Normal Inspection, Thyroid Normal - Respiratory Respiratory: POSITIVE: No Respiratory Distress, Wheezes (Scattered wheezing). NEGATIVE: Breath Sounds Normal - Cardiovascular Cardiovascular: POSITIVE: Regular Rate & Rhythm, No Murmur, No Gallop, PMI Normal Peripheral Pulses: Radial (R): 2+, Radial (L): 2+ - Abdomen Abdomen: Soft: (All Quadrants), Normal Bowel Sounds: (All Quadrants), Denies Tenderness: (All Quadrants), No Splenomegaly: (All Quadrants), No Hepatomegaly: (All Quadrants), No Guarding: (All Quadrants), No Rebound: (All Quadrants), No Palpable Pulse: (All Quadrants), No Palpabale Mass: (All Quadrants), No Distention: (All Quadrants), No Rigidity: (All Quadrants) - Back Back: POSITIVE: Normal Inspection - Skin Skin: POSITIVE: Normal Color, Warm, Dry, No Rash - Extremities Extremity: Non-Tender: (All Extremities), Normal ROM: (All Extremities), Normal Inspection: (All Extremities) - Neurological / Psychological Neurological: POSITIVE: Affect Apporpriate, Oriented X3, 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 Chest x-ray shows cardiomegaly without effusion or infiltrate. Osteoporosis noted. Lab Results Reviewed by Me: Yes Lab Results:: Laboratory Results 12/02/18 12/02/18 12/02/18 14:13 14:19 14:19 WBC 5.83 RBC 4.05 L Hgb 13.1 Hct 40.9 MCV 101.0 H MCH 32.3 H MCHC 32.0 L RDW Std Deviation 53.6 H RDW Coeff of Rick 14.8 H Plt Count 149 MPV 10.4 Immature Gran % (Auto) 0.2 Neut % (Auto) 62.8 Lymph % (Auto) 23.8 [place] % (Auto) 8.6 Eos % (Auto) 3.9 Baso % (Auto) 0.7 Immature Gran # (Auto) 0.01 Neut # (Auto) 3.66 Lymph # (Auto) 1.39 [place] # (Auto) 0.50 Eos # (Auto) 0.23 Baso # (Auto) 0.04 WBC Morphology Comment Normal morphology Plt Morphology Comment Normal morphology RBC Morph Comment Normal morphology D-Dimer 1.35 H VBG pH 7.37 VBG pCO2 52 VBG HCO3 30 H VBG Base Excess 5 H Sodium Potassium Chloride Carbon Dioxide Anion Gap BUN Creatinine BUN/Creatinine Ratio Glucose Calculated Osmolality Calcium Total Bilirubin AST ALT Alkaline Phosphatase Troponin I NT-Pro-B Natriuret Pep Total Protein Albumin Globulin Albumin/Globulin Ratio Ur Collection Type Urine Color Urine Clarity Urine pH Ur Specific [place] Urine Protein Urine Glucose (UA) Urine Ketones Urine Occult Blood Urine Nitrate Urine Bilirubin Urine Urobilinogen Ur Leukocyte Esterase Urine RBC Urine WBC Ur Squamous Epith Cells Ur Renal Epithelial Cell Urine Crystals Urine Bacteria Urine Casts Urine Mucus Urine Trichomonas Urine Yeast Ur Culture Indicated? 12/02/18 12/02/18 12/02/18 14:19 14:19 14:19 WBC RBC Hgb Hct MCV MCH MCHC RDW Std Deviation RDW Coeff of Rick Plt Count MPV Immature Gran % (Auto) Neut % (Auto) Lymph % (Auto) [place] % (Auto) Eos % (Auto) Baso % (Auto) Immature Gran # (Auto) Neut # (Auto) Lymph # (Auto) [place] # (Auto) Eos # (Auto) Baso # (Auto) WBC Morphology Comment Plt Morphology Comment RBC Morph Comment D-Dimer VBG pH VBG pCO2 VBG HCO3 VBG Base Excess Sodium 140 Potassium 4.1 Chloride 102 Carbon Dioxide 32 Anion Gap 6 BUN 17 Creatinine 0.8 BUN/Creatinine Ratio 21.25 H Glucose 110 Calculated Osmolality 292.0 Calcium 9.6 Total Bilirubin 0.6 AST 23 ALT 34 Alkaline Phosphatase 79 Troponin I < 0.012 NT-Pro-B Natriuret Pep 392 Total Protein 6.4 Albumin 3.9 Globulin 2.4 L Albumin/Globulin Ratio 1.60 Ur Collection Type Urine Color Urine Clarity Urine pH Ur Specific [place] Urine Protein Urine Glucose (UA) Urine Ketones Urine Occult Blood Urine Nitrate Urine Bilirubin Urine Urobilinogen Ur Leukocyte Esterase Urine RBC Urine WBC Ur Squamous Epith Cells Ur Renal Epithelial Cell Urine Crystals Urine Bacteria Urine Casts Urine Mucus Urine Trichomonas Urine Yeast Ur Culture Indicated? 12/02/18 14:47 WBC RBC Hgb Hct MCV MCH MCHC RDW Std Deviation RDW Coeff of Rick Plt Count MPV Immature Gran % (Auto) Neut % (Auto) Lymph % (Auto) [place] % (Auto) Eos % (Auto) Baso % (Auto) Immature Gran # (Auto) Neut # (Auto) Lymph # (Auto) [place] # (Auto) Eos # (Auto) Baso # (Auto) WBC Morphology Comment Plt Morphology Comment RBC Morph Comment D-Dimer VBG pH VBG pCO2 VBG HCO3 VBG Base Excess Sodium Potassium Chloride Carbon Dioxide Anion Gap BUN Creatinine BUN/Creatinine Ratio Glucose Calculated Osmolality Calcium Total Bilirubin AST ALT Alkaline Phosphatase Troponin I NT-Pro-B Natriuret Pep Total Protein Albumin Globulin Albumin/Globulin Ratio Ur Collection Type Clean catch urine Urine Color Yellow Urine Clarity Clear Urine pH 7.0 Ur Specific [place] 1.015 Urine Protein Negative Urine Glucose (UA) Negative Urine Ketones Negative Urine Occult Blood Negative Urine Nitrate Negative Urine Bilirubin Negative Urine Urobilinogen 1.0 Ur Leukocyte Esterase Trace Urine RBC 1-3 Urine WBC 1-3 Ur Squamous Epith Cells Rare Ur Renal Epithelial Cell None Urine Crystals Few Urine Bacteria None Urine Casts Few Urine Mucus Rare Urine Trichomonas None Urine Yeast None Ur Culture Indicated? Culture not set CBC and BMP: 12/03/18 05:00 12/03/18 05:00 EKG Interpreted/Reviewed By Me:: Yes (normal sinus rhythm; normal) EKG Interpretation:: POSITIVE: Normal Sinus Rhythm, Normal Rate, Normal Intervals, Normal [place], Normal QRS, Normal ST/T - Patient's Progress Pain Medication Addressed: POSITIVE: Not Applicable School/Work Release Addressed: POSITIVE: Not Applicable Re-Examine Time: 16:55 Re-Examine Comment: Patient and family advised that I believe her symptoms are due to pulmonary emboli in her right lung. Case discussed with hospitalist, Dr. Pimentel, and patient admitted for further evaluation and treatment. Status: POSITIVE: Unchanged, Improved (Patient maintains oxygen saturation well on supplemental oxygen) Antibiotics Given: No - Consult Counseled: POSITIVE: Patient, Family, RE: Lab Results, RE: Radiology Results, RE: DX, RE: Need for F/U Patient Care Time - Estimated PCT Patient Care Time (In Minutes): 60 Vital Signs - VS Reviewed Vital Signs Reviewed: Yes Discharge Clinical Impression: Pulmonary embolism Discharge Disposition: Admit to Inpatient Condition: Stable Date Decision to Admit to Inpatient: 12/02/18 Time Decision to Admit to Inpatient: 16:25
[2018-12-03] MEDS: Sertraline Tab 50 MG TAB PO SCH (09:33)
[2018-12-03] MEDS: Triamterene/HCTZ 75/50 Tab 1 TAB TAB PO SCH (09:33)
[2018-12-03] MEDS: Metoprolol TARTRATE Tab 50 MG TAB PO SCH ×2 (09:33→21:02)
[2018-12-03] MEDS: traMADol 50 MG TABLET PO PRN (09:33)
[2018-12-03] MEDS: ALLOPURINOL 300 MG TABLET PO SCH (09:33)
[2018-12-03] MEDS: Apixaban 5 MG TABLET PO SCH ×2 (09:34→21:03)
[2018-12-03] MEDS: LINACLOTIDE 72 MCG PO SCH (09:37)
--- NOTE | 2018-12-03 09:50 | DI ---
Exam: US VENOUS BILATERAL LOWER EXTREMITIES INDICATION: Pulmonary embolism TECHNIQUE: Real-time sonographic imaging of the bilateral common femoral, superficial femoral and popliteal and posterior tibial veins is performed utilizing intermittent compression. Peroneal veins were not visualized due to lower extremity edema. The study is supplemented with color flow imaging and duplex Doppler during spontaneous flow, Valsalva and calf augmentation. COMPARISON: None FINDINGS: Normal compressibility is demonstrated from the common femoral vein to the popliteal and posterior tibial vein bilaterally. Peroneal veins were not visualized due to lower extremity edema. There is normal response to Valsalva and augmentation. Normal spontaneous phasic flow is noted. IMPRESSION: 1. No evidence for deep venous thrombosis in the visualized bilateral lower extremity venous structures. 2. Bilateral peroneal veins were not visualized due to lower extremity edema and cannot be commented upon.
--- NOTE | 2018-12-03 10:06 | PDOC(PROG) ---
Date of Service: 12/03/18 Time of Service: 10:10 Interval History: Subjective Patient came into the hospital history of shortness of breath, wheezing some pain in the chest with taking deep breath. She has history of some swelling in her legs and she attributed that to the previous multiple surgeries that she had for her knees. She is better compared to when she came in. She did report wheezing and she received nebulizer yesterday and that helped her symptoms. She feels better today compared to yesterday. Objective : Data - Labs CBC and BMP: 12/03/18 05:00 12/03/18 05:00 Objective : Exam - General General Appearance: No Acute Distress, Cooperative, Obese - Head Head Exam: Normal Inspection - Eye Eye Exam: Normal Appearance - ENT ENT Exam: Normal Exam - Neck Neck Exam: Normal Inspection - Respiratory Additional Respiratory Exam Details: Occasional wheeze. - Cardiovascular Cardiovascular Exam: RRR - GI/Abdominal GI/Abdominal Exam: Normal Bowel Sounds, Non Tender, Non Distended, Soft, No Organomegaly - Rectal Rectal Exam: Deferred - External Exam: Deferred Exam: Deferred - Extremities Additional Extremities Exam Details: Scars of previous operation noted both knees. I don't think there is edema today. - Neurological Neurological Exam: Alert, Oriented x 3, CN II-XII Intact, No Facial Droop, Speech Intact / Clear - Psychiatric Psychiatric Exam: Normal Affect Assessment and Plan - Patient Problems (1) Pulmonary embolism Current Visit: Yes Status: Acute Comment: She is on eliquis, continue with it. Waiting for ultrasound of the legs. There is some wheezes. Will put her on inhalers, she has an inhaler at home I'm not sure whether she knows how to use it. Code(s): I26.99 - Other pulmonary embolism without acute cor pulmonale (2) Hypertension Current Visit: No Status: Chronic Comment: Same medications Code(s): I10 - Essential (primary) hypertension Qualifiers: Hypertension type: essential hypertension Qualified Code(s): I10 - Essential (primary) hypertension (3) Wheezing Current Visit: Yes Status: Acute Comment: There is wheezing heard bilaterally. I think with the persistent wheezing will give some steroid watch her another night see how her symptoms tomorrow and then will decide if she is ready to go home. Code(s): R06.2 - Wheezing
[2018-12-03] MEDS: ALBUTEROL SULFATE 8.5 GM HFA INHALER INH SCH ×3 (10:46→18:55)
[2018-12-03] MEDS ORDERED: IPRATROPIUM/ALBUTEROL SULFATE 3 ML NEB NEB PRN (12:31)
[2018-12-03] MEDS: methylPREDNISolone 40 MG/1 ML VIAL IVP SCH (12:57)
[2018-12-03] MEDS ORDERED: traMADol 50 MG TABLET PO ONE (17:40)
[2018-12-04] MEDS: methylPREDNISolone 40 MG/1 ML VIAL IVP SCH (00:28)
[2018-12-04] MEDS: ALBUTEROL SULFATE 8.5 GM HFA INHALER INH SCH ×2 (01:06→06:59)
[2018-12-04] MEDS: LEVOTHYROXINE 125 MCG TABLET PO SCH (04:40)
[2018-12-04 04:44] VITALS: RESP 18
[2018-12-04 05:29] LABS: BLOOD UREA NITROGEN 26 mg/dL (7-22)
[2018-12-04] MEDS: traMADol 50 MG TABLET PO PRN (06:51)
[2018-12-04] MEDS: OMEPRAZOLE 40 MG CAPSULE PO SCH (06:51)
[2018-12-04 06:56] VITALS: BP 131/70; TEMP 96.5; O2SAT 92
[2018-12-04] MEDS ORDERED: FUROSEMIDE 20 MG TABLET PO SCH (07:00)
[2018-12-04] MEDS: Apixaban 5 MG TABLET PO SCH (08:13)
[2018-12-04] MEDS: Triamterene/HCTZ 75/50 Tab 1 TAB TAB PO SCH (08:14)
[2018-12-04] MEDS: ALLOPURINOL 300 MG TABLET PO SCH (08:14)
[2018-12-04] MEDS: Metoprolol TARTRATE Tab 50 MG TAB PO SCH (08:14)
--- NOTE | 2018-12-04 08:19 | DCSUMMARY ---
Hospitalization Summary Admit Date: 12/02/2018 Discharge Date: 12/04/18 Hospital Course: Discharge diagnoses 1. Pulmonary emboli in the right upper lobe which is the remaining lobe in the right thorax 2. Pulmonary hypertension 3. Asthmatic bronchitis 4. History of Non-small cell carcinoma of the lung status post right middle and lower lobe lobectomy 2007 5. History of infiltrating ductal carcinoma status post mastectomy 6. History of recurrent thyroid carcinoma status post resection of radioactive identification 7. History of hypertension 8. History of gout 9. History of osteoporosis Hospital course This is an 83 years old female with medical history significant for history of previous lung cancer status post middle and lower lobe lobe lobectomies on the right, history of breast cancer status post mastectomy, history of thyroid cancer status post thyroidectomy and radioactive ablation, history of hypertension and history of gout who presented to the urgent care clinic because of shortness of breath and wheezing with cough she was given breathing treatment and was sent to the ER. She did report some episode of sharp pain in the chest with taking deep breath that did not last long. She had a CT of the chest which showed the emboli in the right upper lobe. She was started on eliquis and was admitted to the hospital. She was admitted by Dr. Pimentel please see his note. In addition to putting her on anticoagulant she was started also on Lasix. I saw her the next day she was feeling better exam was a noticeable for presence of wheezing in her lung. I thought that she had asthmatic bronchitis in addition to the PE. We kept her another day we put her on breathing treatment in addition to steroids. On the day of discharge she felt a lot better. Her chest sound better there were no wheezing in her lung. There were no edema in her legs. We discharge her on oral tapering dose of prednisone, furosemide and eliquis. She was also given the inhaler with spacer that we started her on here to take it home. She will need follow-up with her PCP. Laboratory Results 12/04/18 04:45 Sodium 140 Potassium 4.7 Chloride 99 Carbon Dioxide 33 Anion Gap 8 BUN 26 H Creatinine 0.8 BUN/Creatinine Ratio 32.50 H Glucose 175 H Calculated Osmolality 298.0 H Calcium 9.5 Discharge instruction Diet regular Activity as tolerated Medications Current Medication(s) Medication Instructions Recorded Confirmed Type Albuterol Sulfate [Proair Hfa] 1 - 2 puff INH Q4-6H #1 inhaler 04/06/17 12/02/18 Rx metoprolol tartrate 50 mg tablet 50 mg PO BID #180 tab 06/30/17 12/02/18 Clinic omeprazole 40 mg capsule,delayed 40 mg PO QDAY #90 cap 06/30/17 12/02/18 Clinic release tramadol 50 mg tablet 50 mg PO QDAY PRN #60 tab 10/05/17 12/02/18 Rx linaclotide 72 mcg capsule 72 mcg PO QDAY 05/02/18 12/02/18 History triamterene 37.5 1 tab PO QDAY #90 tab 06/06/18 12/02/18 Rx mg-hydrochlorothiazide 25 mg tablet allopurinol 300 mg tablet 300 mg PO QDAY #1 tab 09/08/18 12/02/18 Clinic sertraline 25 mg tablet 25 mg PO QDAY #90 tab 09/08/18 12/02/18 Rx levothyroxine 125 mcg tablet 125 mcg PO QDAY tab 09/30/18 12/02/18 History Apixaban [Eliquis] 5 mg PO BID #60 tab 12/04/18 Rx Furosemide [Lasix] 20 mg PO EVERY AM #30 tab 12/04/18 Rx predniSONE Tab [Deltasone Tab] 10 mg PO DAILY #6 tab 12/04/18 Rx Follow-up with PCP in 1-2 weeks Condition at discharge was stable for discharge Exam - Vitals Vital Signs: Vital Signs Temperature 96.5 F Temperature Source Temporal Artery Scan Pulse Rate [Pulse Oximeter] 67 Pulse Rate [Telemetry] 63 Pulse Rate 53 Respiratory Rate 18 Blood Pressure [Right Arm] 125/54 Blood Pressure [Right Radial 131/70 Artery] Pulse Ox 92 Oxygen Flow Rate 2 Oxygen Delivery Method Nasal Cannula Height 5 ft 4 in Weight 260 lb 9.6 oz - General General Appearance: No Acute Distress, Cooperative, Obese - Head Head Exam: Normal Inspection - Eye Eye Exam: POSITIVE: Normal Appearance - ENT ENT Exam: POSITIVE: Normal Exam - Neck Neck Exam: Normal Inspection - Respiratory Additional Respiratory Exam Details: The lungs are clear today compared to yesterday. No wheezing today. - Cardiovascular Cardiovascular Exam: POSITIVE: RRR - GI/Abdominal GI/Abdominal Exam: POSITIVE: Normal Bowel Sounds, Non Tender, Non Distended, Soft, No Organomegaly - Rectal Rectal Exam: POSITIVE: Deferred - External Exam: POSITIVE: Deferred - Extremities Extremities Exam: POSITIVE: Normal Inspection - Back Back Exam: POSITIVE: Normal Inspection - Neurological Neurological Exam: POSITIVE: Alert, Oriented x 3, CN II-XII Intact, No Facial Droop, Speech Intact / Clear, Moves All Extremities Equally - Psychiatric Psychiatric Exam: POSITIVE: Normal Affect - Integumentary Integumentary Exam: POSITIVE: Normal Color Patient Problems - Patient Problem List (1) Pulmonary embolism Current Visit: Yes Status: Acute Code(s): I26.99 - Other pulmonary embolism without acute cor pulmonale Category: Medical (2) Hypertension Current Visit: No Status: Chronic Comment: 30+ years Code(s): I10 - Essential (primary) hypertension Qualifiers: Hypertension type: essential hypertension Qualified Code(s): I10 - Essential (primary) hypertension Category: Medical (3) Wheezing Current Visit: Yes Status: Acute Code(s): R06.2 - Wheezing Category: Medical
[2018-12-04] MEDS: Sertraline Tab 50 MG TAB PO SCH (08:29)
[2018-12-04] MEDS: LINACLOTIDE 72 MCG PO SCH (08:30)
[2018-12-04] MEDS ORDERED: Apixaban 5 MG TABLET PO SCH (11:45)
[2018-12-05] MEDS ORDERED: FUROSEMIDE 20 MG TABLET PO SCH (07:00)
== END 2018-12-04 11:02 | disposition home or self-care (01) | DRG 176 ==
LOC: ER 13:12 → MED/SURG 17:40
PROVIDERS: ADMIT Internal Medicine; ATTEND Internal Medicine